=== PATIENT | female | born 1960 | race Caucasian/White ===

== ENCOUNTER 2017-05-19 07:20 | Day surgery (SDC) | payer SELFPAY ==
[2017-05-19] MEDS ORDERED: Lidocaine 2% MPF (5 ml) Inj ONE (08:08)
[2017-05-19] MEDS ORDERED: Propofol 10 mg/ml Inj (20 ML) ONE (08:08)
[2017-05-19 08:16] VITALS: O2SAT 100
[2017-05-19] MEDS ORDERED: Lactated Ringer's 1,000 ML IV ONE (08:49)
[2017-05-19 09:52] VITALS: BP 115/51; PULSE 56; RESP 15; TEMP 97.6
== END 2017-05-19 10:12 | disposition home or self-care (01) ==
LOC: H.ENDO 07:20
PROVIDERS: ATTEND Internal Medicine Gastroenterology
DX: Z12.11 Encounter for screening for malignant neoplasm of colon (principal); E78.5 Hyperlipidemia, unspecified; K64.8 Other hemorrhoids; B96.81 Helicobacter pylori [H. pylori] as the cause of diseases classified elsewhere; K29.50 Unspecified chronic gastritis without bleeding
CPT/HCPCS: 45378; 88305; J2704; J7120